=== PATIENT | female | born 1995 | race Caucasian/White ===

== ENCOUNTER 2016-10-11 23:26 | Emergency (ER) | payer SELFPAY ==
[~2016-10-11] VITALS: Ht 157.5 cm; Wt 61.7 kg
[2016-10-12] MEDS ORDERED: MOBIC7.5 MG PO
[2016-10-12] MEDS ORDERED: KLONOPIN0.5 MG PO
== END 2016-10-12 09:20 | disposition short-term general hospital (02) ==
LOC: ER 23:26
DX: O9A.213 Injury, poisoning and certain other consequences of external causes complicating pregnancy, third trimester (principal); S30.1XXA Contusion of abdominal wall, initial encounter; Z3A.31 31 weeks gestation of pregnancy; Z79.899 Other long term (current) drug therapy; W07.XXXA Fall from chair, initial encounter
CPT/HCPCS: G0477; G0480